=== PATIENT | male | born 1990 | race Caucasian/White ===

== ENCOUNTER 2020-06-13 16:55 | Emergency (ER) | payer SELFPAY ==
--- NOTE | 2020-06-13 17:30 | RAD ---
Exam: XR Hand Lt 3 View STANDARD HISTORY: Left lateral hand pain after punching an object. COMPARISON: None FINDINGS: Lucency seen in the lunate bone which may represent intraosseous ganglion. Minimal subchondral cystic changes seen at the lateral aspect of the metacarpal head of the thumb. No acute fracture, dislocation, or other acute osseous abnormality is identified. IMPRESSION: No acute osseous abnormality is identified.
== END 2020-06-13 17:34 | disposition home or self-care (01) ==
LOC: MADERS 16:55
DX: S60.222A Contusion of left hand, initial encounter (principal); F17.210 Nicotine dependence, cigarettes, uncomplicated; W50.0XXA Accidental hit or strike by another person, initial encounter

== ENCOUNTER 2023-09-20 10:08 | Emergency (ER) | payer SELFPAY ==
[2023-09-20] MEDS ORDERED: Clindamycin 150 MG CAP ONE (10:27)
== END 2023-09-20 10:35 | disposition home or self-care (01) ==
LOC: MADERS 10:08
DX: K02.9 Dental caries, unspecified (principal); F17.210 Nicotine dependence, cigarettes, uncomplicated; F17.220 Nicotine dependence, chewing tobacco, uncomplicated
CPT/HCPCS: 99282